=== PATIENT | female | born 1955 | race Caucasian/White ===

== ENCOUNTER 2016-10-13 09:29 | Outpatient (CLI) | payer OTHER ==
--- NOTE | 2016-10-13 15:22 | Diagnostic Imaging Report ---
[facility] [id number] [facility].[address] [id number] Report Submission Date: Oct 13, 2016 1:09:47 PM CDT Patient Study Name: BELKYS YOU Date: Oct 13, 2016 11:35:52 AM CDT Modality Type: CT\SR Gender: M Description: CT ABD & PELVIS W/ CON : 57 Institution: [facility] Physician CARMEN ANTONIO - OP CT of the abdomen and pelvis with contrast CLINICAL HISTORY: Abdominal pain with nausea and vomiting. Contrast administered: 92 mL of Omnipaque. TECHNIQUE: CT abdomen and pelvis is performed with oral and intravenous administration of contrast. Sagittal and coronal reconstructions are performed by the technologist. FINDINGS: There are bilateral pleural effusions with passive atelectasis in the lung bases. The liver and spleen demonstrate fairly normal attenuation with a 2.6 cm left hepatic cyst. Gallbladder is filled with stones. There is no significant biliary tree dilatation. Adrenal glands are unremarkable. The kidneys demonstrate symmetric enhancement. Pancreas is enlarged and inhomogeneous with peripancreatic edema and thickening of Gerota's fascia on the left consistent with acute pancreatitis. There is no fluid collection to suggest abscess formation or pseudocyst. Appendix is visualized and is within normal limits. Bladder is unremarkable. Uterus and adnexal structures are within normal limits. IMPRESSION: Acute pancreatitis. Bilateral pleural effusions with bibasilar atelectasis. Gallbladder filled with stones. Left hepatic cyst. Negative appendix. Electronically signed on Oct 13, 2016 1:09:47 PM CDT by: Renato DIAZ
== END 2016-10-13 09:30 ==
LOC: RAD 09:29
PROVIDERS: ATTEND Family Medicine
DX: R10.9 Unspecified abdominal pain (principal); R11.2 Nausea with vomiting, unspecified
CPT/HCPCS: 74177; Q9966; A9698